=== PATIENT | male | born 1940 | race Caucasian/White ===

== ENCOUNTER 2018-10-25 11:27 | Inpatient (IN) ==
[2018-10-25] MEDS ORDERED: ONDANSETRON 4 MG/2 ML VIAL IV STA (11:58)
[2018-10-25 12:56] LABS: Basophils % 0.4 % (0.0-0.8); Eosinophils # 0.1 10*3/uL (0.0-0.87); Eosinophils % 1.3 % (0.00-10.9); Hematocrit 38.2 VOL% (42.0-52.0); Hemoglobin 12.4 GM/DL (14.0-18.0); Immature Granulocytes % 1.5 %; Immature Granulocytes Absolute 0.15 #; Lymphocytes # 1.1 10*3/uL (1.4-4.0); Lymphocytes % 11.4 % (21.2-54.2); Mean Corpuscular HGB Conc 32.5 GM/DL (32-36); Mean Corpuscular Volume 92.7 FL (87-102); Mean Platelet Volume 10.1 FL (9.6-12.0); Monocytes % 9.5 % (1.7-12.7); Neutrophils % 75.9 % (38.7-73.9); Platelet Count 208 T/CUMM (130-400); Red Blood Count 4.12 MC/CUMM (3.8-5.5); Red Cell Distribution Width 14.2 % (9.3-17.3); White Blood Count 9.9 T/CUMM (4-12)
[2018-10-25 13:20] LABS: Calcium 8.3 MG/DL (8.5-10.1); Osmolality,Calculated 286.3 MOS/KG (273-304)
[2018-10-25] MEDS ORDERED: MORPHINE 4 MG/1 ML VIAL IV PRN (13:44)
[2018-10-25] MEDS ORDERED: ONDANSETRON 4 MG/2 ML VIAL IV PRN (13:44)
[2018-10-25 16:09] LABS: Apearance,Urine CLEAR (Clear); Bilirubin,Urine Negative (Negative); Blood, Urine Negative (Negative); Glucose,Urine (UA) Negative (Negative); Ketones,Urine 5 mg/dL (Negative); Nitrite,Urine Negative (Negative); Protein,Urine Negative; RBC,Urine 1 /HPF (0-4); Urine Color Yellow (Yellow); Urine Specific Gravity 1.023 (1.001-1.035); Urine Urobilinogen < 2.0 EU/DL (0.2-1.0); WBC,Urine 1 /HPF (0-6)
[2018-10-25] MEDS: SODIUM CHLORIDE 0.9% 1,000 ML IV SCH (17:23)
[2018-10-25] MEDS: MORPHINE 4 MG/1 ML VIAL IV PRN (21:21)
[2018-10-26] MEDS: SODIUM CHLORIDE 0.9% 1,000 ML IV SCH ×3 (03:31→20:52)
[2018-10-26 06:13] LABS: Basophils # 0.1 10*3/uL (0.0-0.2); Basophils % 0.7 % (0.0-0.8); Eosinophils # 0.3 10*3/uL (0.0-0.87); Eosinophils % 3.4 % (0.00-10.9); Hemoglobin 11.2 GM/DL (14.0-18.0); Immature Granulocytes % 0.5 %; Immature Granulocytes Absolute 0.04 #; Lymphocytes # 1.3 10*3/uL (1.4-4.0); Lymphocytes % 15.2 % (21.2-54.2); Mean Corpuscular Volume 94.3 FL (87-102); Monocytes % 9.3 % (1.7-12.7); Neutrophils % 70.9 % (38.7-73.9); Platelet Count 193 T/CUMM (130-400); Red Blood Count 3.71 MC/CUMM (3.8-5.5); Red Cell Distribution Width 13.9 % (9.3-17.3); White Blood Count 8.8 T/CUMM (4-12)
[2018-10-26 06:57] LABS: Calcium 8.2 MG/DL (8.5-10.1); Risk Ratio 2.8; Thyroid Stimulating Hormone 0.552 uIU/ml (0.358-3.74)
[2018-10-26] MEDS ORDERED: ceFAZolin 1,000 MG in SYRINGE 1 EACH IV ONE (07:00)
[2018-10-26] MEDS ORDERED: ceFAZolin 1,000 MG VIAL ONE (10:02)
[2018-10-26] MEDS ORDERED: diphenhydrAMINE CAP 25 MG CAPSULE PO PRN (10:55)
[2018-10-26] MEDS ORDERED: MAGNESIUM HYDROXIDE SUSP 30 ML UDCUP PO PRN (10:55)
[2018-10-26] MEDS ORDERED: PROPOFOL 200 MG/20 ML VIAL IV ONE (11:12)
[2018-10-26] MEDS ORDERED: SEVOFLURANE 1 UNIT/15 MINUTE INH ONE (11:12)
[2018-10-26] MEDS ORDERED: BUPIVACAINE SPINAL 0.75% 2 ML AMP SPINAL ONE (11:12)
[2018-10-26] MEDS ORDERED: ONDANSETRON 4 MG/2 ML VIAL ONE (11:13)
[2018-10-26] MEDS ORDERED: PHENYLEPHRINE 10 MG/1 ML VIAL IV ONE (11:13)
[2018-10-26] MEDS ORDERED: PHENYLEPHRINE 1 MG/10 ML SYRINGE IV ONE (11:13)
[2018-10-26] MEDS ORDERED: LACTATED RINGERS 1,000 ML IV ONE (11:13)
[2018-10-26] MEDS ORDERED: KETAMINE 500 MG/10 ML VIAL ONE (11:13)
[2018-10-26] MEDS ORDERED: SODIUM CHLORIDE 0.9% 250 ML IV ONE (11:13)
[2018-10-26] MEDS ORDERED: SODIUM CHLORIDE 0.9% 100 ML IV ONE (11:13)
[2018-10-26] MEDS: ceFAZolin 1,000 MG in SYRINGE 1 EACH IV SCH ×2 (16:22→23:36)
[2018-10-26] MEDS: GABAPENTIN 100 MG CAPSULE PO SCH ×2 (16:22→20:53)
[2018-10-26] MEDS: MIDODRINE 2.5 MG TABLET PO SCH ×2 (16:22→20:52)
[2018-10-26] MEDS: ENOXAPARIN 40 MG/0.4 ML SYRINGE SUBCUT SCH ×2 (20:52→21:38)
[2018-10-26] MEDS: MELATONIN 3 MG TABLET PO SCH (20:52)
[2018-10-26] MEDS: busPIRone 5 MG TABLET PO SCH (20:52)
[2018-10-26] MEDS: MEMANTINE 10 MG TABLET PO SCH (20:53)
[2018-10-26] MEDS: DONEPEZIL 10 MG TABLET PO SCH (20:54)
[2018-10-26] MEDS: MORPHINE 4 MG/1 ML VIAL IV PRN (20:54)
[2018-10-27 04:55] LABS: Basophils % 0.4 % (0.0-0.8); Eosinophils # 0.3 10*3/uL (0.0-0.87); Eosinophils % 3.1 % (0.00-10.9); Hematocrit 32.1 VOL% (42.0-52.0); Hemoglobin 10.3 GM/DL (14.0-18.0); Immature Granulocytes % 0.5 %; Immature Granulocytes Absolute 0.04 #; Lymphocytes % 12.2 % (21.2-54.2); Mean Corpuscular HGB Conc 32.1 GM/DL (32-36); Mean Corpuscular Volume 93.6 FL (87-102); Mean Platelet Volume 10.3 FL (9.6-12.0); Monocytes % 10.2 % (1.7-12.7); Neutrophils % 73.6 % (38.7-73.9); Platelet Count 190 T/CUMM (130-400); Red Blood Count 3.43 MC/CUMM (3.8-5.5); Red Cell Distribution Width 13.5 % (9.3-17.3)
[2018-10-27 05:38] LABS: Calcium 7.7 MG/DL (8.5-10.1); Osmolality,Calculated 278.5 MOS/KG (273-304)
[2018-10-27] MEDS: SODIUM CHLORIDE 0.9% 1,000 ML IV SCH ×2 (07:14→17:11)
[2018-10-27] MEDS: ceFAZolin 1,000 MG in SYRINGE 1 EACH IV SCH (08:34)
[2018-10-27] MEDS: MEMANTINE 10 MG TABLET PO SCH ×2 (08:36→21:15)
[2018-10-27] MEDS: CALCIUM (CARBONATE)/VITAMIN D 500 MG-200 UNIT TABLET PO SCH (08:36)
[2018-10-27] MEDS: MIDODRINE 2.5 MG TABLET PO SCH ×3 (08:36→21:15)
[2018-10-27] MEDS: busPIRone 5 MG TABLET PO SCH ×2 (08:36→21:15)
[2018-10-27] MEDS: CHOLECALCIFEROL 1,000 UNIT TABLET PO SCH (08:36)
[2018-10-27] MEDS: ASPIRIN EC 81 MG TABLET PO SCH (08:36)
[2018-10-27] MEDS: MORPHINE 4 MG/1 ML VIAL IV PRN ×2 (11:26→21:25)
[2018-10-27] MEDS: GABAPENTIN 100 MG CAPSULE PO SCH ×2 (17:12→21:15)
[2018-10-27] MEDS: MELATONIN 3 MG TABLET PO SCH (21:15)
[2018-10-27] MEDS: DONEPEZIL 10 MG TABLET PO SCH (21:15)
[2018-10-27] MEDS: ENOXAPARIN 40 MG/0.4 ML SYRINGE SUBCUT SCH ×2 (21:15→21:16)
[2018-10-28] MEDS: SODIUM CHLORIDE 0.9% 1,000 ML IV SCH ×2 (03:30→13:32)
[2018-10-28 04:59] LABS: Basophils % 0.6 % (0.0-0.8); Eosinophils # 0.3 10*3/uL (0.0-0.87); Eosinophils % 4.7 % (0.00-10.9); Hematocrit 30.4 VOL% (42.0-52.0); Hemoglobin 9.8 GM/DL (14.0-18.0); Immature Granulocytes % 0.5 %; Immature Granulocytes Absolute 0.03 #; Lymphocytes # 1.3 10*3/uL (1.4-4.0); Lymphocytes % 19.1 % (21.2-54.2); Mean Corpuscular HGB Conc 32.2 GM/DL (32-36); Mean Corpuscular Volume 93.8 FL (87-102); Mean Platelet Volume 9.7 FL (9.6-12.0); Monocytes % 10.8 % (1.7-12.7); Neutrophils % 64.3 % (38.7-73.9); Platelet Count 189 T/CUMM (130-400); Red Blood Count 3.24 MC/CUMM (3.8-5.5); Red Cell Distribution Width 13.4 % (9.3-17.3); White Blood Count 6.6 T/CUMM (4-12)
[2018-10-28 05:25] LABS: Calcium 7.7 MG/DL (8.5-10.1); Osmolality,Calculated 278.5 MOS/KG (273-304)
[2018-10-28] MEDS: CALCIUM (CARBONATE)/VITAMIN D 500 MG-200 UNIT TABLET PO SCH (08:26)
[2018-10-28] MEDS: CHOLECALCIFEROL 1,000 UNIT TABLET PO SCH (08:26)
[2018-10-28] MEDS: MIDODRINE 2.5 MG TABLET PO SCH (08:27)
[2018-10-28] MEDS: busPIRone 5 MG TABLET PO SCH (08:27)
[2018-10-28] MEDS: MEMANTINE 10 MG TABLET PO SCH (08:27)
[2018-10-28] MEDS: ASPIRIN EC 81 MG TABLET PO SCH (08:27)
[2018-10-28] MEDS: MORPHINE 4 MG/1 ML VIAL IV PRN (09:09)
[2018-10-28 12:36] VITALS: BP 116/74
== END 2018-10-28 14:15 | DRG 482 ==
LOC: EDBD → EDUNIT# → N.ED 11:27 → N.EDINP 13:44 → MERGE 13:46 → SUATTDRO 13:46 → N.3E 15:25
PROVIDERS: ADMIT Internal Medicine; ATTEND Internal Medicine

== ENCOUNTER 2018-10-30 01:53 | Inpatient (IN) ==
[2018-10-30 05:00] LABS: Basophils % 0.4 % (0.0-0.8); Eosinophils % 0.2 % (0.00-10.9); Hematocrit 34.4 VOL% (42.0-52.0); Hemoglobin 11.5 GM/DL (14.0-18.0); Immature Granulocytes % 0.4 %; Immature Granulocytes Absolute 0.04 #; Lymphocytes # 0.9 10*3/uL (1.4-4.0); Lymphocytes % 8.2 % (21.2-54.2); Mean Corpuscular HGB Conc 33.4 GM/DL (32-36); Mean Corpuscular Volume 91.5 FL (87-102); Monocytes % 8.2 % (1.7-12.7); Neutrophils % 82.6 % (38.7-73.9); Platelet Count 332 T/CUMM (130-400); Red Blood Count 3.76 MC/CUMM (3.8-5.5); Red Cell Distribution Width 13.5 % (9.3-17.3)
[2018-10-30] MEDS ORDERED: LEVOFLOXACIN INJ 500 MG in PREMIX 1 EACH IV STA (05:14)
[2018-10-30 05:20] LABS: Albumin 2.6 G/DL (3.4-5.0); Bilirubin,Total 0.8 MG/DL (0.2-1.0); Calcium 7.9 MG/DL (8.5-10.1); Osmolality,Calculated 286.3 MOS/KG (273-304); Total Protein 6.2 G/DL (6.4-8.3)
[2018-10-30] MEDS ORDERED: ONDANSETRON 4 MG/2 ML VIAL IV PRN (06:17)
[2018-10-30] MEDS ORDERED: ACETAMINOPHEN 325 MG TABLET PO PRN (06:17)
[2018-10-30] MEDS ORDERED: MORPHINE 4 MG/1 ML VIAL IV PRN (06:17)
[2018-10-30] MEDS: ALBUTEROL/IPRATROPIUM 3 ML NEB RESP TX SCH ×3 (06:42→19:33)
[2018-10-30] MEDS ORDERED: VANCOMYCIN INJ 1,000 MG in SODIUM CHLORIDE 0.9% 250 ML IV SCH (07:00)
[2018-10-30] MEDS: ENOXAPARIN 40 MG/0.4 ML SYRINGE SUBCUT SCH (07:48)
[2018-10-30] MEDS: MEROPENEM 1,000 MG in SODIUM CHLORIDE 0.9% 100 ML IV SCH ×2 (07:49→14:16)
[2018-10-30] MEDS ORDERED: VANCOMYCIN INJ 1,750 MG in SODIUM CHLORIDE 0.9% 500 ML IV ONE (09:00)
[2018-10-30] MEDS: VANCOMYCIN INJ 1,500 MG in SODIUM CHLORIDE 0.9% 500 ML IV SCH (20:37)
[2018-10-31] MEDS: MEROPENEM 1,000 MG in SODIUM CHLORIDE 0.9% 100 ML IV SCH ×3 (00:33→14:16)
[2018-10-31] MEDS: ALBUTEROL/IPRATROPIUM 3 ML NEB RESP TX SCH ×4 (00:40→19:39)
[2018-10-31 05:55] LABS: Basophils % 0.3 % (0.0-0.8); Hematocrit 31.3 VOL% (42.0-52.0); Hemoglobin 10.2 GM/DL (14.0-18.0); Immature Granulocytes % 0.6 %; Immature Granulocytes Absolute 0.07 #; Mean Corpuscular HGB Conc 32.6 GM/DL (32-36); Mean Corpuscular Volume 91.8 FL (87-102); Monocytes % 6.3 % (1.7-12.7); Neutrophils % 84.8 % (38.7-73.9); Platelet Count 315 T/CUMM (130-400); Red Blood Count 3.41 MC/CUMM (3.8-5.5); Red Cell Distribution Width 13.9 % (9.3-17.3); White Blood Count 11.8 T/CUMM (4-12)
[2018-10-31] MEDS ORDERED: LEVOFLOXACIN INJ 500 MG in PREMIX 1 EACH IV SCH (06:00)
[2018-10-31 06:35] LABS: Calcium 7.8 MG/DL (8.5-10.1)
[2018-10-31] MEDS: ENOXAPARIN 40 MG/0.4 ML SYRINGE SUBCUT SCH (06:36)
[2018-10-31] MEDS ORDERED: ACETAMINOPHEN 650 MG SUPP RECTAL PRN (07:57)
[2018-10-31] MEDS: SODIUM CHLORIDE 0.9% 1,000 ML IV SCH (08:07)
[2018-10-31] MEDS: POTASSIUM CHLORIDE RIDER 10 MEQ in PREMIX 1 EACH IV PRN ×4 (08:10→17:58)
[2018-10-31] MEDS: VANCOMYCIN INJ 1,500 MG in SODIUM CHLORIDE 0.9% 500 ML IV SCH ×2 (08:10→20:43)
[2018-10-31 09:15] LABS: Amorphous Crystals,Urine Few /HPF (Few); Apearance,Urine CLOUDY (Clear); Bacteria,Urine Occasional /HPF (Few); Bilirubin,Urine Negative (Negative); Blood, Urine Small mg/dL (Negative); Glucose,Urine (UA) Negative (Negative); Ketones,Urine 5 mg/dL (Negative); Mucus,Urine Few /LPF (Occasional); Nitrite,Urine Negative (Negative); Protein,Urine 30 MG/DL; RBC,Urine 22 /HPF (0-4); Squamous Epithelial Cell,Urine Occasional /HPF (0-10); Urine Color Amber (Yellow); Urine Specific Gravity 1.029 (1.001-1.035); WBC,Urine 2 /HPF (0-6)
[2018-11-01] MEDS: MEROPENEM 1,000 MG in SODIUM CHLORIDE 0.9% 100 ML IV SCH ×3 (00:24→15:30)
[2018-11-01] MEDS: ALBUTEROL/IPRATROPIUM 3 ML NEB RESP TX SCH ×4 (00:44→19:36)
[2018-11-01 01:21] LABS: Basophils % 0.4 % (0.0-0.8); Eosinophils # 0.1 10*3/uL (0.0-0.87); Eosinophils % 1.2 % (0.00-10.9); Hematocrit 30.5 VOL% (42.0-52.0); Hemoglobin 9.9 GM/DL (14.0-18.0); Immature Granulocytes % 0.4 %; Immature Granulocytes Absolute 0.05 #; Lymphocytes # 1.3 10*3/uL (1.4-4.0); Lymphocytes % 11.2 % (21.2-54.2); Mean Corpuscular HGB Conc 32.5 GM/DL (32-36); Mean Corpuscular Volume 93.3 FL (87-102); Mean Platelet Volume 9.9 FL (9.6-12.0); Monocytes % 5.2 % (1.7-12.7); Neutrophils % 81.6 % (38.7-73.9); Platelet Count 338 T/CUMM (130-400); Red Blood Count 3.27 MC/CUMM (3.8-5.5); Red Cell Distribution Width 13.9 % (9.3-17.3); White Blood Count 11.4 T/CUMM (4-12)
[2018-11-01 01:29] LABS: Calcium 7.9 MG/DL (8.5-10.1); Osmolality,Calculated 296.4 MOS/KG (273-304)
[2018-11-01] MEDS: POTASSIUM CHLORIDE RIDER 10 MEQ in PREMIX 1 EACH IV PRN ×5 (02:03→17:38)
[2018-11-01] MEDS ORDERED: MIDAZOLAM 2 MG/2 ML VIAL ONE (07:22)
[2018-11-01] MEDS ORDERED: LIDOCAINE 1% 20 ML VIAL MISC INJ ONE (08:00)
[2018-11-01] MEDS ORDERED: LIDOCAINE 2% VISCOUS 100 ML BOTTLE SWISH/SPIT ONE (08:00)
[2018-11-01] MEDS ORDERED: LIDOCAINE 2% 20 ML VIAL RESP TX ONE (08:00)
[2018-11-01] MEDS: ENOXAPARIN 40 MG/0.4 ML SYRINGE SUBCUT SCH (10:40)
[2018-11-01] MEDS: SODIUM CHLORIDE 0.9% 1,000 ML IV SCH ×2 (10:40→22:00)
[2018-11-01] MEDS: VANCOMYCIN INJ 1,500 MG in SODIUM CHLORIDE 0.9% 500 ML IV SCH ×2 (10:41→21:59)
[2018-11-02] MEDS: ALBUTEROL/IPRATROPIUM 3 ML NEB RESP TX SCH ×4 (00:12→19:25)
[2018-11-02] MEDS: MEROPENEM 1,000 MG in SODIUM CHLORIDE 0.9% 100 ML IV SCH ×4 (00:42→23:55)
[2018-11-02] MEDS: SODIUM CHLORIDE 0.9% 1,000 ML IV SCH ×2 (00:43→20:41)
[2018-11-02] MEDS: POTASSIUM CHLORIDE RIDER 10 MEQ in PREMIX 1 EACH IV PRN (01:57)
[2018-11-02] MEDS: ENOXAPARIN 40 MG/0.4 ML SYRINGE SUBCUT SCH (06:38)
[2018-11-02] MEDS: VANCOMYCIN INJ 1,500 MG in SODIUM CHLORIDE 0.9% 500 ML IV SCH ×2 (08:21→20:41)
[2018-11-03] MEDS: ALBUTEROL/IPRATROPIUM 3 ML NEB RESP TX SCH ×4 (02:12→19:18)
[2018-11-03] MEDS: MEROPENEM 1,000 MG in SODIUM CHLORIDE 0.9% 100 ML IV SCH (06:58)
[2018-11-03] MEDS: ENOXAPARIN 40 MG/0.4 ML SYRINGE SUBCUT SCH (06:58)
[2018-11-03] MEDS: VANCOMYCIN INJ 1,500 MG in SODIUM CHLORIDE 0.9% 500 ML IV SCH (09:47)
[2018-11-03] MEDS ORDERED: FUROSEMIDE 40 MG/4 ML VIAL IV ONE (10:22)
[2018-11-03] MEDS: CLINDAMYCIN INJ 600 MG in PREMIX 1 EACH IV SCH ×2 (15:14→23:19)
[2018-11-03] MEDS: SODIUM CHLORIDE 0.9% 1,000 ML IV SCH (20:06)
[2018-11-04] MEDS: SODIUM CHLORIDE 0.9% 1,000 ML IV SCH (00:40)
[2018-11-04] MEDS: ALBUTEROL/IPRATROPIUM 3 ML NEB RESP TX SCH ×4 (00:49→18:56)
[2018-11-04] MEDS: CLINDAMYCIN INJ 600 MG in PREMIX 1 EACH IV SCH ×3 (06:07→22:53)
[2018-11-04] MEDS: ENOXAPARIN 40 MG/0.4 ML SYRINGE SUBCUT SCH (06:08)
[2018-11-04 07:15] LABS: Calcium 8.1 MG/DL (8.5-10.1); Osmolality,Calculated 287.8 MOS/KG (273-304)
[2018-11-04] MEDS: POTASSIUM CHLORIDE RIDER 10 MEQ in PREMIX 1 EACH IV PRN ×3 (09:52→13:55)
[2018-11-04] MEDS ORDERED: POTASSIUM CHLORIDE 20 MEQ/15 ML UDCUP PER TUBE SCH (15:00)
[2018-11-04] MEDS ORDERED: POTASSIUM CHLORIDE 20 MEQ/15 ML UDCUP PER TUBE PRN (17:00)
[2018-11-04 22:18] LABS: Osmolality,Calculated 289.7 MOS/KG (273-304)
[2018-11-04] MEDS: POTASSIUM CHLORIDE 20 MEQ/15 ML UDCUP PER TUBE PRN (23:01)
[2018-11-05] MEDS: POTASSIUM CHLORIDE 20 MEQ/15 ML UDCUP PER TUBE PRN ×3 (01:15→06:02)
[2018-11-05] MEDS: ALBUTEROL/IPRATROPIUM 3 ML NEB RESP TX SCH ×2 (01:45→07:36)
[2018-11-05 05:23] LABS: Basophils % 0.5 % (0.0-0.8); Eosinophils # 0.3 10*3/uL (0.0-0.87); Eosinophils % 3.3 % (0.00-10.9); Hematocrit 32.1 VOL% (42.0-52.0); Hemoglobin 10.2 GM/DL (14.0-18.0); Immature Granulocytes % 1.3 %; Immature Granulocytes Absolute 0.11 #; Lymphocytes # 1.2 10*3/uL (1.4-4.0); Lymphocytes % 13.9 % (21.2-54.2); Mean Corpuscular HGB Conc 31.8 GM/DL (32-36); Mean Platelet Volume 9.8 FL (9.6-12.0); Monocytes % 6.4 % (1.7-12.7); Neutrophils % 74.6 % (38.7-73.9); Platelet Count 511 T/CUMM (130-400); Red Blood Count 3.45 MC/CUMM (3.8-5.5); Red Cell Distribution Width 14.1 % (9.3-17.3); White Blood Count 8.5 T/CUMM (4-12)
[2018-11-05 05:44] LABS: Calcium 8.2 MG/DL (8.5-10.1); Osmolality,Calculated 293.6 MOS/KG (273-304)
[2018-11-05] MEDS: ENOXAPARIN 40 MG/0.4 ML SYRINGE SUBCUT SCH (06:02)
[2018-11-05] MEDS: CLINDAMYCIN INJ 600 MG in PREMIX 1 EACH IV SCH (06:02)
[2018-11-05 06:03] LABS: Eosinophils 3 % (0-10); Lymphocytes 12 % (20-55); Myelocytes 1 %; Segmented Neutrophils 75 % (50-85); Total Cells Counted 100
[2018-11-05 06:04] LABS: Hypochromasia 1+; Platelet Estimate Increased
[2018-11-05 12:17] VITALS: BP 137/83
== END 2018-11-05 14:26 | DRG 177 ==
LOC: N.EDINP 01:53 → N.ED 01:53 → N.5E 06:44 → SUATTDRO 12:16
PROVIDERS: ADMIT Internal Medicine; ATTEND Emergency Medicine